=== PATIENT | female | born 2005 | race Hispanic/Latino ===

== ENCOUNTER 2024-08-26 17:31 | Emergency (ER) | payer SELFPAY ==
[2024-08-26 18:35] LABS: Absolute Basophils 0.1 K/uL (0-0.5); Absolute Lymphocytes (CBC) 0.9 K/uL (0.7-4.9); Absolute Monocytes 0.4 K/uL (0.1-1.3); Absolute Neutrophil 13.1 K/uL (1.8-8.0); Basophils % 0.5 % (0-1.3); Eosinophils % 0.2 % (0-4.4); Hematocrit 44.3 % (36.0-45.0); Lymphocytes % 6.2 % (15.3-44.8); MCH 31.2 pg (27.0-35.0); MCHC 33.8 g/dL (32.0-36.0); MCV 92.2 fL (80-100); MPV 8.5 fL (7.6-11.3); Monocytes % 2.5 % (3.3-12.3); Neutrophils % 90.6 % (41.7-73.7); Nucleated Red Blood Cells % 0.1 % (0-0); Platelets 343 thou/uL (152-406); Red Cell Distribution Width 12.9 % (12.1-15.2)
[2024-08-26 18:55] LABS: ALT/SGPT 15 U/L (13-56); AST/SGOT 13 U/L (15-37); Albumin 4.3 g/dL (3.4-5.0); Albumin/Globulin Ratio 1.1 (1.1-1.8); Alkaline Phosphatase 68 U/L (45-117); Anion Gap 9.8 mEq/L (5.0-15.0); BUN Blood Urea Nitrogen 10 mg/dL (7-18); Bicarbonate 26 mEq/L (21-32); Bilirubin Direct 0.2 mg/dL (0-0.2); Bilirubin Indirect, Calculated 0.5 mg/dL (0.2-0.8); Bilirubin Total 0.7 mg/dL (0.2-1.0); Globulin 3.8 g/dL (2.3-3.5); Glomerular Filtration Rate 130 ml/min (=/>90); Glucose Level 96 mg/dL (74-106); Magnesium 1.8 mg/dL (1.6-2.4); Potassium 3.8 mEq/L (3.5-5.1); Protein, Total 8.1 g/dL (6.4-8.2); Sodium Level 137 mEq/L (136-145)
[2024-08-26 18:56] LABS: Troponin High Sensitivity < 3.0 pg/mL (<58.9)
--- NOTE | 2024-08-26 19:09 | RAD REPORT ---
EXAMINATION: ONE VIEW CHEST XR CLINICAL INDICATION: Female, 19 years old.,syncope TECHNIQUE: Frontal chest projection is submitted. Examination is limited by patient positioning and t echnique. COMPARISON: 02/08/2010 FINDINGS: The lungs are well inflated and clear. No pneumothorax or sizable effusion. The heart is normal in s ize. Mediastinal contours are unremarkable. IMPRESSION: No acute intrathoracic abnormalities.
[2024-08-26 19:51] LABS: Blood Morphology Comment NOT SEEN (NOT SEEN); Platelet Estimate ADEQ; White Blood Cell Scan OK (OK)
--- NOTE | 2024-08-26 21:11 | RAD REPORT ---
EXAM: CT Head Brain Wo Cont HISTORY: SYNCOPE COMPARISON: None TECHNIQUE: Multiple contiguous axial images were obtained for a CT of the brain without contrast. Sag ittal and coronal reformats were performed. One or more of the following dose reduction techniques were used: Automated exposure control, adjus tment of the mA and kV according to patient size, and iterative reconstruction. Unless otherwise specified, incidental findings do not require dedicated imaging follow-up. FINDINGS: No evidence of hydrocephalus, intracranial hemorrhage, or extra-axial fluid collection. The brain is normal in morphology. The calvarium is intact. The visualized paranasal sinuses and mastoid air cells are essentially clear . IMPRESSION: No evidence of acute intracranial abnormality.
[2024-08-26 22:14] LABS: Specific Gravity 1.026 (1.005-1.030); Sqamous Epithelial <5 /HPF (None Seen); Urine Bacteria <20 /HPF (<20); Urine Bilirubin NEGATIVE (Negative); Urine Blood Trace (Negative); Urine Clarity Turbid (Clear); Urine Color Light-Yellow (Yellow); Urine Culture Reflex Order NOT NEEDED; Urine Glucose NEGATIVE (Negative); Urine Ketones 4+ (Over) (Negative); Urine Micro Reflex YN NO BILL MICROSCOPIC; Urine Mucus Slight /HPF (None Seen); Urine Nitrite NEGATIVE (Negative); Urine Protein TRACE (Negative); Urine RBC <5 /HPF (None Seen); Urine Urobilinogen Normal (Normal); Urine WBC <5 /HPF (<5)
[2024-08-26 22:16] LABS: Barbiturates NEGATIVE (NEGATIVE); Benzodiazepines NEGATIVE (NEGATIVE); Cocaine NEGATIVE (NEGATIVE); METHAMPHETAM NEGATIVE (NEGATIVE); Methadone NEGATIVE (NEGATIVE); Opiates NEGATIVE (NEGATIVE); Phencyclidine NEGATIVE (NEGATIVE); Specific Gravity 1.026 (1.005-1.030); THC Cannibis NEGATIVE (NEGATIVE)
--- NOTE | 2024-08-26 22:26 | EDPHYS ---
Physician Documentation [facility] Name: Jayne Ely Age: 19 yrs Sex: Female : 2005 Arrival Date: 08/26/2024 Time: 17:31 Bed 18 Private MD: ED Physician Fei Serna HPI: 08/26 18:00 This 19 yrs old Female presents to ER via EMS with complaints of Syncope. cp 18:00 The patient has experienced syncope, lost consciousness. cp 18:00 Onset: The symptoms/episode began/occurred today. cp 18:00 Duration: This was a single episode, that lasted an unknown period of time. Context: cp occurred at home, occurred while the patient was getting out of shower. Just prior to the episode the patient experienced lightheadedness. Associated signs and symptoms: The patient has no apparent associated signs or symptoms. Current symptoms: Currently, the patient is not experiencing any symptoms. Historical: - Allergies: 18:05 No Known Allergies; jb4 - PMHx: 18:05 None; jb4 - PSHx: 18:05 None; jb4 - Immunization history:: Adult Immunizations up to date. - Infectious Disease History:: Denies. - Social history:: Smoking status: Patient denies any tobacco usage or history of. ROS: 18:05 Constitutional: Negative for body aches, chills, fever, poor PO intake, cp 18:05 Eyes: Negative for injury, pain, redness, and discharge, cp 18:05 Cardiovascular: Negative for chest pain, edema, palpitations, 18:05 Respiratory: Negative for cough, shortness of breath, wheezing, 18:05 Abdomen/GI: Negative for abdominal pain, vomiting, diarrhea, constipation, 18:05 Neuro: Positive for syncope, Negative for altered mental status, dizziness, headache, 18:05 All other systems are negative, Exam: 18:10 Constitutional: The patient appears in no acute distress, alert, awake, cp non-diaphoretic, non-toxic, well developed, well nourished, 18:10 Head/Face: Normocephalic, atraumatic. cp 18:10 Eyes: Periorbital structures: appear normal, Pupils: equal, round, and reactive to light and accomodation, Extraocular movements: intact throughout, Conjunctiva: normal, no exudate, no injection, Lids and lashes: appear normal, bilaterally, 18:10 ENT: External ear(s): are unremarkable, Nose: is normal, Mouth: Lips: moist, Oral mucosa: moist, Posterior pharynx: Airway: no evidence of obstruction, patent, 18:10 Neck: ROM/movement: is normal, is supple, without pain, no range of motions limitations, 18:10 Chest/axilla: Inspection: normal, 18:10 Cardiovascular: Rate: normal, Rhythm: regular, 18:10 Respiratory: the patient does not display signs of respiratory distress, Respirations: normal, no use of accessory muscles, no retractions, labored breathing, is not present, Breath sounds: are clear throughout, no decreased breath sounds, no stridor, no wheezing, 18:10 Abdomen/GI: Inspection: abdomen appears normal, Palpation: abdomen is soft and non-tender, in all quadrants, 18:10 Neuro: Orientation: to person, place \T\ time. Mentation: is normal, Cerebellar function: is grossly normal, Motor: moves all fours, strength is normal, Sensation: is normal, 18:53 ECG was reviewed by the Attending Physician. Vital Signs: 17:54 BP 121 / 79; Pulse 73; Resp 16; Temp 98.2(O); Pulse Ox 100% on R/A; Weight 46.18 kg jb4 (R); Height 5 ft. 4 in. (R); Pain 0/10; 19:12 BP 113 / 72 LA Supine (auto/reg); Pulse 71; Resp 16; Pulse Ox 98% on R/A; jb4 19:13 BP 121 / 82 LA Sitting (auto/reg); Pulse 80; Resp 16; Pulse Ox 99% on R/A; jb4 19:14 BP 120 / 82; Pulse 80; Resp 16; Pulse Ox 99% on R/A; jb4 21:37 BP 128 / 82; Pulse 79; Resp 16; Pulse Ox 98% on R/A; jb4 17:54 Body Mass Index 17.47 (46.18 kg, 162.56 cm) jb4 17:54 Pain Scale: Adult jb4 MDM: 17:56 Medical Screening Exam initiated cp 22:25 Data reviewed: vital signs, nurses notes, lab test result(s), EKG, radiologic studies, cp CT scan, plain films, and as a result, I will discharge patient. 22:25 Differential Diagnosis: cardiac arrhythmia, drug effect, GI bleed, , pseudo cp seizure, seizure, vasovagal episode. I considered the following discharge prescriptions or medication management in the emergency department Medications were administered in the Emergency Department. See MAR. Independent interpretation of the following test(s) in the Emergency Department EKG: See my EKG interpretation above. Counseling: I had a detailed discussion with the patient and/or guardian regarding the historical points, exam findings, and any diagnostic results supporting the discharge/admit diagnosis, lab results, radiology results, to return to the emergency department if symptoms worsen or persist or if there are any questions or concerns that arise at home. Response to treatment: the patient's symptoms have markedly improved after treatment, and as a result, I will discharge patient. 08/26 17:57 Order name: Basic Metabolic Panel; Complete Time: 19:37 cp 08/26 17:57 Order name: CBC with Diff; Complete Time: 21:18 cp 08/26 21:18 Interpretation: Normal except: WBC 14.40; JONI% 90.6; LYM% 6.2; MN% 2.5; NEUT A 13.1. cp 08/26 17:57 Order name: LFT's; Complete Time: 19:37 cp 08/26 17:57 Order name: Magnesium; Complete Time: 19:37 cp 08/26 17:57 Order name: Troponin HS; Complete Time: 19:37 cp 08/26 17:57 Order name: Urinalysis W/Microscopic; Complete Time: 22:22 cp 08/26 17:57 Order name: Urine Drug Screen; Complete Time: 22:22 cp 08/26 17:57 Order name: Test, Urine; Complete Time: 22:22 cp 08/26 19:51 Order name: CBC Smear Scan; Complete Time: 21:18 EDMS 08/26 17:57 Order name: XRAY Chest (1 view); Complete Time: 19:37 cp 08/26 19:38 Order name: CT Head Brain wo Cont; Complete Time: 21:18 cp 08/26 21:18 Interpretation: Report reviewed. cp 08/26 17:57 Order name: Orthostatic Blood Pressure; Complete Time: 19:37 cp 08/26 17:57 Order name: Cardiac monitoring; Complete Time: 18:50 cp 08/26 17:57 Order name: EKG - Nurse/Tech; Complete Time: 18:50 cp 08/26 17:57 Order name: IV Saline Lock; Complete Time: 18:33 cp 08/26 17:57 Order name: Labs collected and sent; Complete Time: 18:33 cp 08/26 17:57 Order name: O2 Per Protocol; Complete Time: 18:33 cp 08/26 17:57 Order name: O2 Sat Monitoring; Complete Time: 18:33 cp EC:53 Rate is 80 beats/min. Rhythm is regular. MO interval is normal. QRS interval is normal. cp QT interval is normal. T waves are Inverted in lead aVR. Interpreted by me. Reviewed by me. Administered Medications: No medications were administered Disposition: 22:21 I was immediately available on-site in the Emergency Department for consultation in the ms3 care of the patient. Disposition Summary: 08/26/24 22:25 Discharge Ordered Notes: Location: Home cp Problem: new cp Symptoms: have improved cp Condition: Stable cp Diagnosis - Syncope cp Followup: cp - With: Private Physician - When: 2 - 3 days - Reason: Recheck today's complaints Discharge Instructions: - Discharge Summary Sheet cp - Syncope cp Forms: - Medication Reconciliation Form cp - Antibiotic Education cp - Prescription Opioid Use cp - Patient Portal Instructions cp - Leadership Thank You Letter cp - Work release form eb Signatures: Dispatcher [employer] EDMS Odell Boswell PA PA cp Bryson, James, RN RN jb4 Fei Serna DO DO ms3 Corrections: (The following items were deleted from the chart) 17:58 17:58 Chest Single View+RAD.RAD.[email or web address] ordered. EDMS EDMS
--- NOTE | 2024-08-26 22:26 | ER ---
Nurse's Notes [facility] Name: Jayne Ely Age: 19 yrs Sex: Female : 2005 Arrival Date: 08/26/2024 Time: 17:31 Bed 18 Private MD: Diagnosis: Syncope Presentation: 08/26 17:54 Chief complaint: EMS states: Pt vomited once prior to EMS arrival. Had a syncopal jb4 episode. Upon EMS arrival pt was awake and alert. Tachycardiac in the 120's. Bp was normal. Pt was given 600ml of Ns and heart rate returned to the 80's. reports unintentional weight loss of 6 pounds within the last week. reports poor diet, mainly red bull and coffee through out the day and sometime 1 meal per day. Coronavirus screen: At this time, the client does not indicate any symptoms associated with coronavirus-19. Ebola Screen: No symptoms or risks identified at this time. Initial Sepsis Screen: Does the patient meet any 2 criteria? No. Patient's initial sepsis screen is negative. Does the patient have a suspected source of infection? No. Patient's initial sepsis screen is negative. Risk Assessment: Do you want to hurt yourself or someone else? Patient reports no desire to harm self or others. Onset of symptoms was August 26, 2024. Transition of care: patient was not received from another setting of care. 17:54 Method Of Arrival: EMS: [facility] jb4 17:54 Acuity: LORNA 3 jb4 Historical: - Allergies: 18:05 No Known Allergies; jb4 - PMHx: 18:05 None; jb4 - PSHx: 18:05 None; jb4 - Immunization history:: Adult Immunizations up to date. - Infectious Disease History:: Denies. - Social history:: Smoking status: Patient denies any tobacco usage or history of. Screenin:16 [facility] ED Fall Risk Assessment (Adult) History of falling in the last 3 months, jb4 including since admission No falls in past 3 months (0 pts) Confusion or Disorientation No (0 pts) Intoxicated or Sedated No (0 pts) Impaired Gait No (0 pts) Mobility Assist Device Used No (0 pt) Altered Elimination No (0 pt) Score/Fall Risk Level 0 - 2 = Low Risk Oriented to surroundings, Maintained a safe environment. Abuse screen: Denies threats or abuse. Nutritional screening: No deficits noted. Tuberculosis screening: No symptoms or risk factors identified. Assessment: 18:00 General: Appears in no apparent distress. comfortable, Behavior is calm, cooperative, jb4 appropriate for age. Pain: Denies pain. Neuro: Level of Consciousness is awake, alert, obeys commands, Oriented to person, place, time, situation. Cardiovascular: Patient's skin is warm and dry. Respiratory: Airway is patent Respiratory effort is even, unlabored, Respiratory pattern is regular, symmetrical. Derm: Skin is intact, Skin is pink, warm \T\ dry. Musculoskeletal: Circulation, motion, and sensation intact. Range of motion: intact in all extremities. 19:00 Reassessment: Patient appears in no apparent distress at this time. Patient and/or jb4 family updated on plan of care and expected duration. Pain level reassessed. Patient is alert, oriented x 3, equal unlabored respirations, skin warm/dry/pink. 20:00 Reassessment: Patient appears in no apparent distress at this time. Patient and/or jb4 family updated on plan of care and expected duration. Pain level reassessed. Patient is alert, oriented x 3, equal unlabored respirations, skin warm/dry/pink. 21:00 Reassessment: Patient appears in no apparent distress at this time. Patient and/or jb4 family updated on plan of care and expected duration. Pain level reassessed. Patient is alert, oriented x 3, equal unlabored respirations, skin warm/dry/pink. 23:07 Reassessment: Patient appears in no apparent distress at this time. Patient and/or jb4 family updated on plan of care and expected duration. Pain level reassessed. Patient is alert, oriented x 3, equal unlabored respirations, skin warm/dry/pink. Vital Signs: 17:54 BP 121 / 79; Pulse 73; Resp 16; Temp 98.2(O); Pulse Ox 100% on R/A; Weight 46.18 kg jb4 (R); Height 5 ft. 4 in. (R); Pain 0/10; 19:12 BP 113 / 72 LA Supine (auto/reg); Pulse 71; Resp 16; Pulse Ox 98% on R/A; jb4 19:13 BP 121 / 82 LA Sitting (auto/reg); Pulse 80; Resp 16; Pulse Ox 99% on R/A; jb4 19:14 BP 120 / 82; Pulse 80; Resp 16; Pulse Ox 99% on R/A; jb4 21:37 BP 128 / 82; Pulse 79; Resp 16; Pulse Ox 98% on R/A; jb4 17:54 Body Mass Index 17.47 (46.18 kg, 162.56 cm) jb4 17:54 Pain Scale: Adult jb4 ED Course: 17:54 Patient arrived in ED. jb4 17:56 Odell Boswell PA is PHCP. cp 17:56 Fei Serna DO is Attending Physician. cp 18:05 Triage completed. jb4 18:05 Arm band placed on right wrist. jb4 18:23 XRAY Chest (1 view) In Process Unspecified. EDMS 19:07 Des Solorio, RN is Primary Nurse. jb4 20:43 CT Head Brain wo Cont In Process Unspecified. EDMS 23:07 No provider procedures requiring assistance completed. IV discontinued, intact, jb4 bleeding controlled, No redness/swelling at site. Pressure dressing applied. Administered Medications: No medications were administered Medication: 19:16 VIS not applicable for this client. jb4 Outcome: 22:25 Discharge ordered by MD. cp 23:07 Discharged to home ambulatory, jb4 23:07 Condition: stable 23:07 Discharge instructions given to patient, Instructed on discharge instructions, follow up and referral plans. Demonstrated understanding of instructions, follow-up care, 23:07 Patient left the ED. jb4 Signatures: Dispatcher [employer] EDNE Odell Boswell PA PA cp Des Solorio, RN RN jb4
[2024-08-26 23:41] VITALS: TEMP 98.2
[2024-08-26 23:47] VITALS: BP 128/82; O2SAT 98
--- NOTE | 2024-08-27 14:15 | EKG ---
Test Date: 2024-08-26 Test Time: 18:47:23 Pbx Installer: REYNA MEASUREMENT RESULTS: Intervals: Rate: 80 SC: 140 QRSD: 86 QT: 390 QTc: 449 [place]: P: 56 SC: 140 QRS: 83 T: 56 INTERPRETIVE STATEMENTS: Normal sinus rhythm with sinus arrhythmia Normal ECG No previous ECG available for comparison Electronically Signed On 08-27-24 14:12:54 CDT by Mikie Cheung
== END 2024-08-26 23:07 | disposition home or self-care (01) ==
LOC: ER 17:31
DX: R55 Syncope and collapse (principal)
CPT/HCPCS: 36415; 70450; 71045; 80048; 80076; 80307; 81001; 81025; 83735; 84484; 85025; 93005; 99283